=== PATIENT | male | born 1965 | race African-American/Black ===

== ENCOUNTER 2017-01-24 15:47 | Emergency (ER) | payer MEDICAID ==
[~2017-01-24] VITALS: Ht 182.9 cm; Wt 85.0 kg
[~2017-01-24 15:47] MED LIST: ABIL5 PO; ALBU18HF2 IH; AZIT250T6 PO; IPRA3AMP9 INH; METH4TAB17 PO; TIOT18CA3 INH
[2017-01-24 15:49] VITALS: BP 106/72
== END 2017-01-24 19:40 | disposition home or self-care (01) ==
LOC: ER 15:47
DX: J45.901 Unspecified asthma with (acute) exacerbation (principal)
CPT/HCPCS: 99283

== ENCOUNTER 2017-02-10 00:19 | Inpatient (IN) | payer MEDICAID ==
[~2017-02-10] VITALS: Ht 188 cm; Wt 81.6 kg
[2017-02-10] MEDS ORDERED: ALBUTEROL (0.083%) 2.5MG/3ML NEB HHN STA (00:36)
[2017-02-10] MEDS ORDERED: METHYLPREDNISOLONE SOD SUCC 125 MG/2 ML VIAL IV STA (00:36)
[2017-02-10] MEDS ORDERED: IPRATROPIUM BROMIDE (0.02%) 0.5MG/2.5ML NEB HHN STA (00:36)
[2017-02-10 02:59] LABS: BASOPHILS % 0.5 % (0.0-2.0); HEMATOCRIT. 44.2 % (42.0-52.0); HEMOGLOBIN. 15.2 g/dL (14.0-18.0); MEAN CORPUSCULAR HEMOGLOBIN 31.2 pg (28.0-32.0); MEAN CORPUSCULAR VOLUME 90.8 fL (80.0-94.0); MEAN PLATELET VOLUME 8.1 fl (7.4-10.4); MONOCYTES % 2.1 % (2.0-8.0); NEUTROPHILS % 82.4 % (40.0-76.0); PLATELET 189 x1000/uL (130-400); RED BLOOD CELL COUNT 4.87 mill/uL (4.7-6.1); RED CELL DISTRIBUTION WIDTH 13.9 % (11.6-14.6)
[2017-02-10 03:03] LABS: CHLORIDE 107 mEq/L (98-107)
[2017-02-10 03:11] LABS: CARBON DIOXIDE 24 mEq/L (21-32)
[2017-02-10 05:30] VITALS: BP 126/81
[2017-02-10 06:00] VITALS: BP 126/81
[2017-02-10] MEDS ORDERED: MORPHINE SULFATE 2 MG/ML CPJ (NOT FOR IM USE) IV PRN (07:00)
[2017-02-10] MEDS ORDERED: IPRATROPIUM/ALBUTEROL 0.5-3(2.5)MG/3ML NEB HHN PRN (07:00)
[2017-02-10] MEDS ORDERED: LORA10TA7 PO (07:33)
[2017-02-10] MEDS ORDERED: MONT10TA24 PO (07:33)
[2017-02-10] MEDS ORDERED: PANT40TA4 PO (07:33)
[2017-02-10] MEDS ORDERED: ALBU2.5V13 NEB (07:33)
[2017-02-10] MEDS ORDERED: MOME13HF INH (07:33)
[2017-02-10] MEDS: METHYLPREDNISOLONE SOD SUCC 40 MG/ML VIAL IV SCH ×3 (07:55→22:09)
[2017-02-10 08:00] VITALS: BP 99/52
[2017-02-10 12:00] VITALS: BP 119/74
[2017-02-10] MEDS: IPRATROPIUM/ALBUTEROL 0.5-3(2.5)MG/3ML NEB HHN SCH ×3 (12:59→21:15)
[2017-02-10] MEDS: BUDESONIDE 0.5MG/2ML NEB HHN SCH (12:59)
[2017-02-10 16:00] VITALS: BP 115/68
[2017-02-10 20:00] VITALS: BP 108/61
[2017-02-11] VITALS: BP 117/70
[2017-02-11] MEDS: IPRATROPIUM/ALBUTEROL 0.5-3(2.5)MG/3ML NEB HHN SCH ×4 (00:48→12:38)
[2017-02-11] MEDS: BUDESONIDE 0.5MG/2ML NEB HHN SCH ×2 (00:49→12:38)
[2017-02-11 04:00] VITALS: BP 121/72
[2017-02-11] MEDS: METHYLPREDNISOLONE SOD SUCC 40 MG/ML VIAL IV SCH (06:09)
[2017-02-11 08:00] VITALS: BP 97/62
[2017-02-11 12:00] VITALS: BP 127/85
== END 2017-02-11 13:17 | disposition home or self-care (01) | DRG 140 ==
LOC: ER 00:19 → EDBEDREQTM 03:53 → EDBEDREQ 03:53 → ENRESERV 04:10 → ER 05:14 → 7WST 05:15
PROVIDERS: ADMIT Internal Medicine; ATTEND Internal Medicine
DX: J44.1 Chronic obstructive pulmonary disease with (acute) exacerbation (principal); J96.00 Acute respiratory failure, unspecified whether with hypoxia or hypercapnia; J45.901 Unspecified asthma with (acute) exacerbation; Z79.2 Long term (current) use of antibiotics; Z79.899 Other long term (current) drug therapy; Z87.891 Personal history of nicotine dependence
CPT/HCPCS: 36415; 71010; 80053; 85025; 93005; 94640; J2920; J2930; J7611; J7620; J7626

== ENCOUNTER 2017-03-31 04:10 | Emergency (ER) | payer MEDICAID ==
[~2017-03-31] VITALS: Ht 188 cm; Wt 100.0 kg
[~2017-03-31 04:10] MED LIST changes: +ALBU2.5V13 NEB; +DUONEB3 ML INH; -IPRA3AMP9 INH; +LORA10TA7 PO; +MOME13HF INH; +MONT10TA24 PO; +PANT40TA4 PO
[2017-03-31] MEDS ORDERED: SODIUM CHLORIDE 0.9% 1,000 ML IV ONE (04:48)
[2017-03-31 05:25] LABS: BASOPHILS % 0.7 % (0.0-2.0); EOSINOPHILS % 5.4 % (0.0-5.0); HEMATOCRIT. 42.8 % (42.0-52.0); HEMOGLOBIN. 14.4 g/dL (14.0-18.0); LYMPHOCYTES % 42.7 % (20.0-50.0); MEAN CORPUSCULAR HEMOGLOBIN 30.7 pg (28.0-32.0); MEAN CORPUSCULAR VOLUME 91.2 fL (80.0-94.0); MEAN PLATELET VOLUME 8.3 fl (7.4-10.4); MONOCYTES % 9.7 % (2.0-8.0); NEUTROPHILS % 41.5 % (40.0-76.0); PLATELET 188 x1000/uL (130-400); RED CELL DISTRIBUTION WIDTH 13.9 % (11.6-14.6)
[2017-03-31 05:28] LABS: PROTHROMBIN TIME 10.1 sec (9.4-11.6)
[2017-03-31 05:41] LABS: CARBON DIOXIDE 28 mEq/L (21-32); CHLORIDE 105 mEq/L (98-107); ETHANOL BLOOD < 10 mg/dL; TROPONIN I < 0.02 ng/mL (0.00-0.04)
[2017-03-31] MEDS ORDERED: POTASSIUM BICARB/CIT ACID 25 MEQ TABLET.EFF PO ONE (06:15)
[2017-03-31 06:37] VITALS: BP 112/73
== END 2017-03-31 06:43 | disposition home or self-care (01) ==
LOC: ER 04:15
DX: F12.10 Cannabis abuse, uncomplicated (principal); E87.6 Hypokalemia; R42 Dizziness and giddiness; F17.200 Nicotine dependence, unspecified, uncomplicated; R11.0 Nausea
CPT/HCPCS: 36415; 71010; 80053; 83605; 83690; 83880; 84484; 85025; 85610; 93005; 96360; 99285; G0482; J7030; Z7610

== ENCOUNTER 2018-10-05 15:22 | Emergency (ER) | payer MEDICAID, OTHER ==
[~2018-10-05] VITALS: Ht 188 cm; Wt 97.0 kg
[~2018-10-05 15:22] MED LIST changes: +AZIT250T12 PO; -AZIT250T6 PO; -PANT40TA4 PO
[2018-10-05] MEDS ORDERED: PREDNISONE 20MG TABLET PO STA (17:50)
[2018-10-05] MEDS ORDERED: IPRATROPIUM/ALBUTEROL 0.5-3(2.5)MG/3ML NEB HHN ONE (18:00)
[2018-10-05 19:19] LABS: BASOPHILS % 0.4 % (0.0-2.0); EOSINOPHILS % 0.1 % (0.0-5.0); HEMATOCRIT. 46.8 % (42.0-52.0); HEMOGLOBIN. 15.6 g/dL (14.0-18.0); LYMPHOCYTES % 14.2 % (20.0-50.0); MEAN CORPUSCULAR HEMOGLOBIN 30.6 pg (28.0-32.0); MEAN CORPUSCULAR VOLUME 91.9 fL (80.0-94.0); MEAN PLATELET VOLUME 7.9 fl (7.4-10.4); MONOCYTES % 12.1 % (2.0-8.0); NEUTROPHILS % 73.2 % (40.0-76.0); PLATELET 191 x1000/uL (130-400); RED BLOOD CELL COUNT 5.09 mill/uL (4.7-6.1); RED CELL DISTRIBUTION WIDTH 14.9 % (11.6-14.6)
[2018-10-05 19:25] LABS: CHLORIDE 102 mEq/L (98-107)
[2018-10-05 19:26] LABS: INR 1.1; PROTHROMBIN TIME 10.6 sec (9.1-11.1)
[2018-10-05] MEDS ORDERED: ALBUTEROL (0.083%) 2.5MG/3ML NEB HHN STA (20:12)
[2018-10-05] MEDS ORDERED: IPRATROPIUM BROMIDE (0.02%) 0.5MG/2.5ML NEB HHN STA (20:12)
[2018-10-05] MEDS ORDERED: IPRATROPIUM/ALBUTEROL 0.5-3(2.5)MG/3ML NEB ONE (20:36)
[2018-10-05] MEDS ORDERED: ALBUTEROL (0.5%) 2.5MG/0.5ML NEB HHN ONE ×2 (20:36→22:30)
[2018-10-06 00:30] VITALS: BP 117/70
== END 2018-10-06 00:40 | disposition home or self-care (01) ==
LOC: ER 15:22
DX: J44.1 Chronic obstructive pulmonary disease with (acute) exacerbation (principal); H53.8 Other visual disturbances; Z87.891 Personal history of nicotine dependence
CPT/HCPCS: 36415; 70450; 71045; 80053; 83880; 84484; 85025; 85610; 93005; 94640; 99285; J7512; J7611; J7620; Z7610

== ENCOUNTER 2019-01-14 02:46 | Inpatient (IN) | payer MEDICAID, OTHER ==
[~2019-01-14] VITALS: Ht 188 cm; Wt 77.1 kg
[2019-01-14] MEDS ORDERED: PREDNISONE 20MG TABLET PO STA (04:13)
[2019-01-14] MEDS ORDERED: ALBUTEROL (0.083%) 2.5MG/3ML NEB HHN STA ×2 (04:13→08:32)
[2019-01-14] MEDS ORDERED: IPRATROPIUM BROMIDE (0.02%) 0.5MG/2.5ML NEB HHN STA (04:13)
[2019-01-14] MEDS ORDERED: MAGNESIUM 2 G PREMIX 50 ML IV ONE (05:45)
[2019-01-14] MEDS ORDERED: ALBUTEROL (0.5%) 2.5MG/0.5ML NEB HHN ONE (05:45)
[2019-01-14 09:17] LABS: BASOPHILS % 0.4 % (0.0-2.0); EOSINOPHILS % 0.4 % (0.0-5.0); HEMATOCRIT. 47.6 % (42.0-52.0); HEMOGLOBIN. 15.9 g/dL (14.0-18.0); LYMPHOCYTES % 11.4 % (20.0-50.0); MEAN CORPUSCULAR HEMOGLOBIN 30.6 pg (28.0-32.0); MEAN CORPUSCULAR VOLUME 91.4 fL (80.0-94.0); MEAN PLATELET VOLUME 8.6 fl (7.4-10.4); MONOCYTES % 0.9 % (2.0-8.0); NEUTROPHILS % 86.9 % (40.0-76.0); PLATELET 187 x1000/uL (130-400); RED CELL DISTRIBUTION WIDTH 13.8 % (11.6-14.6)
[2019-01-14 09:22] LABS: CHLORIDE 106 mEq/L (98-107)
[2019-01-14] MEDS ORDERED: GUAIFENESIN-DM 200MG-20MG/10ML UDC PO PRN (10:00)
[2019-01-14] MEDS ORDERED: IPRATROPIUM/ALBUTEROL 0.5-3(2.5)MG/3ML NEB HHN PRN (10:00)
[2019-01-14] MEDS ORDERED: ACETAMINOPHEN 325MG TABLET PO PRN (10:00)
[2019-01-14] MEDS ORDERED: ONDANSETRON HCL 4MG/2ML INJ IV PRN (10:00)
[2019-01-14] MEDS ORDERED: METHYLPREDNISOLONE SOD SUCC 40 MG/ML VIAL IV SCH (10:30)
[2019-01-14] MEDS ORDERED: IPRATROPIUM/ALBUTEROL 0.5-3(2.5)MG/3ML NEB HHN SCH (12:00)
[2019-01-14] MEDS ORDERED: ALBUTEROL (0.083%) 2.5MG/3ML NEB HHN PRN (13:30)
[2019-01-14 14:00] VITALS: BP 120/79
[2019-01-14 14:16] VITALS: BP 120/79
[2019-01-14] MEDS: THEOPHYLLINE ANHYDROUS 80 MG/15 ML 120ML PO SCH ×2 (15:30→21:42)
[2019-01-14] MEDS: ENOXAPARIN 40MG/0.4ML SYR SUBCUT SCH (15:34)
[2019-01-14] MEDS: AZITHROMYCIN 500 MG TABLET PO SCH (15:34)
[2019-01-14] MEDS: IPRATROPIUM/ALBUTEROL 0.5-3(2.5)MG/3ML NEB HHN SCH ×2 (16:09→20:06)
[2019-01-14 16:12] VITALS: BP 115/87
[2019-01-14] MEDS: NICOTINE 21MG PATCH TD SCH (16:42)
[2019-01-14 20:27] VITALS: BP 130/80
[2019-01-14] MEDS: METHYLPREDNISOLONE SOD SUCC 40 MG/ML VIAL IV SCH (21:40)
[2019-01-14] MEDS: GUAIFENESIN 600MG ER TABLET PO SCH (21:41)
[2019-01-14 23:43] LABS: CLARITY URINE CLEAR (CLEAR); COLOR URINE YELLOW (YELLOW); KETONES URINE 2+ (NEGATIVE); LEUKOCYTE ESTERASE URINE NEGATIVE (NEGATIVE); NITRITE URINE NEGATIVE (NEGATIVE); OCCULT BLOOD URINE NEGATIVE (NEGATIVE); PH URINE 5.5 (4.5-8.0); PROTEIN URINE NEGATIVE (NEGATIVE); SPECIFIC GRAVITY URINE 1.031 (1.005-1.030); UROBILINOGEN URINE 0.2 E.U./dL (0.2-1.0)
[2019-01-15 00:01] LABS: *AMPHETAMINES SCREEN URINE NEGATIVE (NEGATIVE); *BARBITURATES SCREEN URINE NEGATIVE (NEGATIVE); *BENZODIAZEPINES SCREEN URINE NEGATIVE (NEGATIVE); *COCAINE SCREEN URINE NEGATIVE (NEGATIVE)
[2019-01-15 00:02] LABS: CANNABINOID URINE SCREEN PRESUMTIVE POSITIVE (NEGATIVE); METHADONE URINE SCREEN NEGATIVE (NEGATIVE); OPIATES URINE SCREEN NEGATIVE (NEGATIVE); PHENCYCLIDINE URINE SCREEN NEGATIVE (NEGATIVE)
[2019-01-15] MEDS: IPRATROPIUM/ALBUTEROL 0.5-3(2.5)MG/3ML NEB HHN SCH ×6 (00:02→20:13)
[2019-01-15 00:34] VITALS: BP 135/78
[2019-01-15 04:00] VITALS: BP 109/78
[2019-01-15] MEDS: METHYLPREDNISOLONE SOD SUCC 40 MG/ML VIAL IV SCH ×3 (05:11→21:05)
[2019-01-15] MEDS: THEOPHYLLINE ANHYDROUS 80 MG/15 ML 120ML PO SCH ×3 (05:13→21:05)
[2019-01-15 08:00] VITALS: BP 119/78
[2019-01-15 08:02] LABS: BASOPHILS % 0.4 % (0.0-2.0); HEMOGLOBIN. 15.3 g/dL (14.0-18.0); LYMPHOCYTES % 12.8 % (20.0-50.0); MEAN CORPUSCULAR HEMOGLOBIN 30.3 pg (28.0-32.0); MEAN CORPUSCULAR VOLUME 91.3 fL (80.0-94.0); MEAN PLATELET VOLUME 8.5 fl (7.4-10.4); MONOCYTES % 3.3 % (2.0-8.0); NEUTROPHILS % 83.5 % (40.0-76.0); PLATELET 206 x1000/uL (130-400); RED BLOOD CELL COUNT 5.04 mill/uL (4.7-6.1); RED CELL DISTRIBUTION WIDTH 13.5 % (11.6-14.6)
[2019-01-15 08:09] LABS: CHLORIDE 101 mEq/L (98-107)
[2019-01-15] MEDS: AZITHROMYCIN 500 MG TABLET PO SCH (08:42)
[2019-01-15] MEDS: NICOTINE 21MG PATCH TD SCH (08:42)
[2019-01-15] MEDS: GUAIFENESIN 600MG ER TABLET PO SCH ×2 (08:46→21:05)
[2019-01-15 12:00] VITALS: BP 125/81
[2019-01-15] MEDS: ENOXAPARIN 40MG/0.4ML SYR SUBCUT SCH (13:56)
[2019-01-15 16:02] VITALS: BP 120/81
[2019-01-15 20:00] VITALS: BP 121/78
[2019-01-16] VITALS: BP 132/74
[2019-01-16] MEDS: IPRATROPIUM/ALBUTEROL 0.5-3(2.5)MG/3ML NEB HHN SCH ×4 (00:25→13:42)
[2019-01-16 04:00] VITALS: BP 115/69
[2019-01-16] MEDS: THEOPHYLLINE ANHYDROUS 80 MG/15 ML 120ML PO SCH ×2 (06:10→13:39)
[2019-01-16 07:32] LABS: CHLORIDE 102 mEq/L (98-107)
[2019-01-16 07:39] LABS: BASOPHILS % 0.2 % (0.0-2.0); HEMATOCRIT. 44.5 % (42.0-52.0); HEMOGLOBIN. 14.8 g/dL (14.0-18.0); MEAN CORPUSCULAR HEMOGLOBIN 30.3 pg (28.0-32.0); MEAN CORPUSCULAR VOLUME 91.1 fL (80.0-94.0); MEAN PLATELET VOLUME 8.9 fl (7.4-10.4); MONOCYTES % 7.4 % (2.0-8.0); NEUTROPHILS % 79.4 % (40.0-76.0); PLATELET 200 x1000/uL (130-400); RED BLOOD CELL COUNT 4.88 mill/uL (4.7-6.1); RED CELL DISTRIBUTION WIDTH 13.6 % (11.6-14.6)
[2019-01-16 08:00] VITALS: BP 128/87
[2019-01-16 08:35] LABS: BG BASE EXCESS 1.1 mmol/L (-2.0-2.0); BG CARBOXYHEMOGLOBIN 0.5 % (0.5-1.5); BG DEOXYHEMOGLOBIN 7.6 % (0.0-5.0); BG FRACTION INSPIRED OXYGEN 28; BG HCO3 ACT 25.6 mmol/L (22.0-26.0); BG METHEMOGLOBIN 0.2 % (0.0-1.5); BG OXYGEN SATURATION 92.3 % (92.0-98.5); BG OXYHEMOGLOBIN 91.7 % (94.0-97.0); BG PCO2 40.5 mmHg (35.0-45.0); BG PH 7.419 (7.350-7.450); BG PO2 63.9 mmHg (75.0-100.0); BG SAMPLE SITE RIGHT RADIAL; BG TOTAL HEMOGLOBIN 15.7 g/dL (12.0-18.0); BG VENT MODE NASAL CANNULA
[2019-01-16] MEDS: AZITHROMYCIN 500 MG TABLET PO SCH (08:47)
[2019-01-16] MEDS: GUAIFENESIN 600MG ER TABLET PO SCH (08:47)
[2019-01-16] MEDS: NICOTINE 21MG PATCH TD SCH (08:48)
[2019-01-16] MEDS ORDERED: PREDNISONE 20MG TABLET PO SCH (09:00)
[2019-01-16 11:57] VITALS: BP 107/75
[2019-01-16] MEDS: ENOXAPARIN 40MG/0.4ML SYR SUBCUT SCH (13:35)
[2019-01-16 13:53] VITALS: BP 107/75
[2019-01-16 16:00] VITALS: BP 122/87
== END 2019-01-16 17:05 | disposition home or self-care (01) | DRG 139 ==
LOC: ER 02:46 → 8WST 08:26 → ENRESERV 12:02
PROVIDERS: ADMIT Internal Medicine; ATTEND Internal Medicine
DX: J18.9 Pneumonia, unspecified organism (principal); J96.00 Acute respiratory failure, unspecified whether with hypoxia or hypercapnia; J44.1 Chronic obstructive pulmonary disease with (acute) exacerbation; J44.0 Chronic obstructive pulmonary disease with (acute) lower respiratory infection; J20.8 Acute bronchitis due to other specified organisms; F12.90 Cannabis use, unspecified, uncomplicated; F17.210 Nicotine dependence, cigarettes, uncomplicated; Z79.51 Long term (current) use of inhaled steroids; Z79.899 Other long term (current) drug therapy; Z71.6 Tobacco abuse counseling
CPT/HCPCS: 36415; 36600; 71045; 80048; 80305; 82375; 82805; 83880; 84484; 93005; 94640; 96374; 99285; J1650; J2920; J3475; J7512; J7611; J7620

== ENCOUNTER 2019-09-22 13:42 | Inpatient (IN) | payer MEDICAID ==
[~2019-09-22] VITALS: Ht 188 cm; Wt 74.1 kg
[~2019-09-22 13:42] MED LIST changes: -AZIT250T12 PO; +CLAR10 PO; +FAMO20TA8 MT; +GUAI600T44 PO; -LORA10TA7 PO; -METH4TAB17 PO; +MONT10TA21 PO; -MONT10TA24 PO; +P20 MT; +P20 PO; +PRED10TA MT; +PRED5TAB MT
[2019-09-22] MEDS ORDERED: ACETAMINOPHEN 325MG TABLET PO STA (14:40)
[2019-09-22] MEDS ORDERED: SODIUM CHLORIDE 0.9% 1,000 ML IV ONE (14:40)
[2019-09-22 15:20] LABS: CHLORIDE 101 mEq/L (98-107)
[2019-09-22 15:23] LABS: PROTHROMBIN TIME 10.6 sec (9.6-11.0)
[2019-09-22 15:25] LABS: BASOPHILS % 0.3 % (0.0-2.0); EOSINOPHILS % 0.2 % (0.0-5.0); HEMATOCRIT. 42.7 % (42.0-52.0); HEMOGLOBIN. 14.4 g/dL (14.0-18.0); LYMPHOCYTES % 9.1 % (20.0-50.0); MEAN CORPUSCULAR HEMOGLOBIN 30.5 pg (28.0-32.0); MEAN CORPUSCULAR VOLUME 90.5 fL (80.0-94.0); MEAN PLATELET VOLUME 7.9 fl (7.4-10.4); MONOCYTES % 9.4 % (2.0-8.0); PLATELET 271 x1000/uL (130-400); RED BLOOD CELL COUNT 4.72 mill/uL (4.7-6.1); RED CELL DISTRIBUTION WIDTH 14.1 % (11.6-14.6)
[2019-09-22] MEDS ORDERED: POTASSIUM CHLORIDE 20MEQ TABLET SR PO NR (16:00)
[2019-09-22] MEDS ORDERED: CEFTRIAXONE 1 G PREMIX 50 ML IV ONE (16:45)
[2019-09-22] MEDS ORDERED: AZITHROMYCIN 500 MG in DEXT 5% WATER 250 ML IV SCH (16:45)
[2019-09-22 22:15] VITALS: BP 106/76
[2019-09-22] MEDS ORDERED: FLUT1BLS8 IH (22:59)
[2019-09-23] VITALS: BP 97/59
[2019-09-23] MEDS ORDERED: IPRATROPIUM/ALBUTEROL 0.5-3(2.5)MG/3ML NEB HHN PRN (00:15)
[2019-09-23] MEDS ORDERED: ACETAMINOPHEN 325MG TABLET PO PRN (00:45)
[2019-09-23 00:59] LABS: CLARITY URINE CLEAR (CLEAR); COLOR URINE DARK YELLOW (YELLOW); KETONES URINE 1+ (NEGATIVE); LEUKOCYTE ESTERASE URINE NEGATIVE (NEGATIVE); NITRITE URINE NEGATIVE (NEGATIVE); OCCULT BLOOD URINE NEGATIVE (NEGATIVE); PH URINE 6.5 (4.5-8.0); PROTEIN URINE 2+ (NEGATIVE); SPECIFIC GRAVITY URINE 1.039 (1.005-1.030)
[2019-09-23 01:30] LABS: *AMPHETAMINES SCREEN URINE NEGATIVE (NEGATIVE); *BARBITURATES SCREEN URINE NEGATIVE (NEGATIVE); *BENZODIAZEPINES SCREEN URINE NEGATIVE (NEGATIVE); *COCAINE SCREEN URINE NEGATIVE (NEGATIVE); METHADONE URINE SCREEN NEGATIVE (NEGATIVE)
[2019-09-23 01:31] LABS: CANNABINOID URINE SCREEN PRESUMTIVE POSITIVE (NEGATIVE); PHENCYCLIDINE URINE SCREEN NEGATIVE (NEGATIVE)
[2019-09-23 01:37] LABS: CREATINE KINASE 36 IU/L (39-308)
[2019-09-23 01:38] LABS: CREATINE KINASE MB FRACTION < 1.0 ng/mL (0.5-3.6)
[2019-09-23 04:00] VITALS: BP 105/70
[2019-09-23 06:13] LABS: BASOPHILS % 0.2 % (0.0-2.0); EOSINOPHILS % 0.4 % (0.0-5.0); HEMATOCRIT. 40.7 % (42.0-52.0); HEMOGLOBIN. 13.4 g/dL (14.0-18.0); LYMPHOCYTES % 13.6 % (20.0-50.0); MEAN PLATELET VOLUME 8.4 fl (7.4-10.4); MONOCYTES % 8.3 % (2.0-8.0); NEUTROPHILS % 77.5 % (40.0-76.0); PLATELET 265 x1000/uL (130-400); RED BLOOD CELL COUNT 4.47 mill/uL (4.7-6.1); RED CELL DISTRIBUTION WIDTH 13.3 % (11.6-14.6)
[2019-09-23 06:27] LABS: CHLORIDE 102 mEq/L (98-107)
[2019-09-23 06:35] LABS: LDL CHOLESTEROL 80 mg/dL (5-100)
[2019-09-23 06:37] LABS: CREATINE KINASE 44 IU/L (39-308); HDL CHOLESTEROL 34 mg/dL (40-59)
[2019-09-23 06:40] LABS: CREATINE KINASE MB FRACTION < 1.0 ng/mL (0.5-3.6)
[2019-09-23 08:00] VITALS: BP 117/82
[2019-09-23] MEDS ORDERED: CEFTRIAXONE 1 G PREMIX 50 ML IV SCH (09:00)
[2019-09-23] MEDS ORDERED: AZITHROMYCIN 500 MG in DEXT 5% WATER 250 ML IV SCH (09:00)
[2019-09-23] MEDS ORDERED: POTASSIUM CHLORIDE 20MEQ/PACKET PO ONE (09:30)
[2019-09-23] MEDS: ENOXAPARIN 40MG/0.4ML SYR SUBCUT SCH (09:51)
[2019-09-23 12:00] VITALS: BP 114/88
[2019-09-23] MEDS ORDERED: POTASSIUM CHLORIDE INJ 40 MEQ in DEXT 5% WATER 250 ML IV NR (12:30)
[2019-09-23 16:00] VITALS: BP 122/78
[2019-09-23] MEDS: CEFTRIAXONE 1 G PREMIX 50 ML IV SCH (18:24)
[2019-09-23 20:00] VITALS: BP 117/78
[2019-09-23] MEDS: AZITHROMYCIN 500 MG in DEXT 5% WATER 250 ML IV SCH (20:09)
[2019-09-24] VITALS: BP 105/64
[2019-09-24 04:00] VITALS: BP 100/66
[2019-09-24 05:30] LABS: CHLORIDE 106 mEq/L (98-107)
[2019-09-24 08:00] VITALS: BP 104/67
[2019-09-24] MEDS: ENOXAPARIN 40MG/0.4ML SYR SUBCUT SCH (09:36)
[2019-09-24 12:00] VITALS: BP 102/70
[2019-09-24] MEDS ORDERED: POTASSIUM CHLORIDE 20MEQ/PACKET PO NR (14:56)
[2019-09-24 16:00] VITALS: BP 108/64
[2019-09-24] MEDS: CEFTRIAXONE 1 G PREMIX 50 ML IV SCH (17:05)
[2019-09-24] MEDS: AZITHROMYCIN 500 MG in DEXT 5% WATER 250 ML IV SCH (18:07)
[2019-09-24 20:00] VITALS: BP 128/82
[2019-09-25] VITALS: BP 104/70
[2019-09-25 04:00] VITALS: BP 125/85
[2019-09-25 07:59] LABS: BASOPHILS % 1.1 % (0.0-2.0); EOSINOPHILS % 1.3 % (0.0-5.0); HEMATOCRIT. 41.4 % (42.0-52.0); HEMOGLOBIN. 14.2 g/dL (14.0-18.0); LYMPHOCYTES % 30.3 % (20.0-50.0); MEAN CORPUSCULAR HEMOGLOBIN 30.8 pg (28.0-32.0); MEAN PLATELET VOLUME 7.9 fl (7.4-10.4); MONOCYTES % 12.3 % (2.0-8.0); PLATELET 326 x1000/uL (130-400); RED CELL DISTRIBUTION WIDTH 13.4 % (11.6-14.6)
[2019-09-25 08:14] LABS: CHLORIDE 104 mEq/L (98-107)
[2019-09-25] MEDS: ENOXAPARIN 40MG/0.4ML SYR SUBCUT SCH (09:03)
[2019-09-25 11:54] VITALS: BP 105/60
[2019-09-25] MEDS ORDERED: AMOX-424 MT (12:55)
[2019-09-25] MEDS ORDERED: AZIT500T8 MT (12:55)
[2019-09-25 14:24] VITALS: BP 104/60
[2019-09-25] MEDS ORDERED: IPRATROPIUM/ALBUTEROL 0.5-3(2.5)MG/3ML NEB HHN SCH (18:00)
[2019-09-25] MEDS ORDERED: AZITHROMYCIN 500 MG TABLET PO SCH (18:00)
[2019-09-25 20:34] LABS: OPIATES URINE SCREEN NEGATIVE (NEGATIVE)
== END 2019-09-25 16:45 | disposition home or self-care (01) | DRG 720 ==
LOC: ER 13:42 → 5WST 19:06 → EDBEDREQSVC 19:10 → EDBEDREQ 19:10 → ENRESERV 21:22
PROVIDERS: ADMIT Internal Medicine; ATTEND Internal Medicine
DX: A41.9 Sepsis, unspecified organism (principal); J96.00 Acute respiratory failure, unspecified whether with hypoxia or hypercapnia; J43.9 Emphysema, unspecified; J18.9 Pneumonia, unspecified organism; J45.901 Unspecified asthma with (acute) exacerbation; I10 Essential (primary) hypertension; F17.210 Nicotine dependence, cigarettes, uncomplicated; R73.9 Hyperglycemia, unspecified; E87.6 Hypokalemia; R73.03 Prediabetes; Z79.51 Long term (current) use of inhaled steroids; Z79.899 Other long term (current) drug therapy
CPT/HCPCS: 36415; 71045; 71250; 80048; 80053; 80061; 80305; 81003; 82550; 82553; 83036; 83605; 84145; 84484; 85025; 87804; 93005; 93970; 99285; J0456; J0696; J1650; J3480; J7030; J7060

== ENCOUNTER 2019-10-24 21:56 | Emergency (ER) | payer MEDICAID ==
[~2019-10-24] VITALS: Ht 188 cm; Wt 79.0 kg
[~2019-10-24 21:56] MED LIST changes: +AMOX-424 MT; +AZIT500T8 MT; -FAMO20TA8 MT; +FLUT1BLS8 IH; -P20 MT; -P20 PO; -PRED10TA MT; -PRED5TAB MT
[2019-10-24] MEDS ORDERED: ONDANSETRON HCL 4MG/2ML INJ IV ONE (23:00)
[2019-10-24] MEDS ORDERED: PROPOFOL 200MG/20ML VIAL IV ONE (23:00)
[2019-10-24] MEDS ORDERED: FENTANYL CITRATE/PF 50MCG/ML 2ML VIAL IV ONE (23:00)
[2019-10-25] MEDS ORDERED: KETAMINE HCL 50 MG/ML 10ML ONE (00:12)
[2019-10-25] MEDS ORDERED: KETAMINE HCL 50 MG/ML 10ML IV ONE ×2 (00:15→00:30)
[2019-10-25 07:30] VITALS: BP 115/76
== END 2019-10-25 07:52 | disposition home or self-care (01) ==
LOC: ER 21:56
DX: S82.891A Other fracture of right lower leg, initial encounter for closed fracture (principal); I10 Essential (primary) hypertension; J44.9 Chronic obstructive pulmonary disease, unspecified; Z88.0 Allergy status to penicillin; W01.0XXA Fall on same level from slipping, tripping and stumbling without subsequent striking against object, initial encounter; Y93.89 Activity, other specified; Y92.012 Bathroom of single-family (private) house as the place of occurrence of the external cause
CPT/HCPCS: 27840; 73590; 73600; 96374; 96375; 99152; 99285; J2405; J2704; J3010; J3490; Z7610

== ENCOUNTER 2021-03-26 11:11 | Emergency (ER) | payer MEDICAID ==
[~2021-03-26] VITALS: Ht 188 cm; Wt 77.0 kg
[2021-03-26 12:06] LABS: BASOPHILS % 0.7 % (0.0-2.0); EOSINOPHILS % 5.8 % (0.0-5.0); HEMATOCRIT. 48.1 % (42.0-52.0); LYMPHOCYTES % 25.4 % (20.0-50.0); MEAN CORPUSCULAR VOLUME 90.2 fL (80.0-94.0); MEAN PLATELET VOLUME 8.7 fl (7.4-10.4); MONOCYTES % 7.2 % (2.0-8.0); NEUTROPHILS % 60.9 % (40.0-76.0); PLATELET 250 x1000/uL (130-400); RED BLOOD CELL COUNT 5.33 mill/uL (4.7-6.1); RED CELL DISTRIBUTION WIDTH 14.2 % (11.6-14.6)
[2021-03-26 12:10] LABS: CHLORIDE 108 mEq/L (98-107)
[2021-03-26] MEDS ORDERED: LEVOFLOXACIN 250MG TABLET PO ONE (13:30)
[2021-03-26] MEDS ORDERED: LEVO750T46 PO (13:42)
[2021-03-26 15:06] VITALS: BP 123/83
== END 2021-03-26 15:16 | disposition home or self-care (01) ==
LOC: ER 11:11
DX: J18.9 Pneumonia, unspecified organism (principal); I10 Essential (primary) hypertension; F17.210 Nicotine dependence, cigarettes, uncomplicated; Z20.822 Contact with and (suspected) exposure to COVID-19
CPT/HCPCS: 36415; 71045; 80053; 83880; 84484; 85025; 87426; 93005; 99285